=== PATIENT | male | born 1970 | race Caucasian/White ===

== ENCOUNTER 2024-03-01 16:18 | Outpatient (OUT) | payer OTHER, SELFPAY ==
--- NOTE | 2024-03-01 16:29 | US_ITS ---
The [address] [address] Patient Name: PAWEL IQBAL MRN: [id number] date: 1970 Sex: M Assigned Patient Location: US Current Patient Location: US Accession/Order Number: [id number] Exam Date: 03/01/2024 18:15 Report Date: 03/01/2024 19:08 At the request of: AMADOR THOMPSON Procedure: US venous doppler LE RT EXAM: US venous doppler LE RT HISTORY: Edema of right lower leg R60.0, Thrombophlebitis right leg for the past week. COMPARISON: None. TECHNIQUE: Multiple sonographic images of the deep veins of the right lower extremity were obtained, supplemented with Doppler. FINDINGS: The deep veins of the right lower extremity are fairly well visualized from the groin to the mid calf. No filling defect is identified to indicate a thrombus. There is normal compression augmentation of flow throughout. US/US venous doppler LE RT IMPRESSION: There is no direct or indirect evidence of deep vein thrombosis in the right lower extremity at this time. Electronically authenticated by: TORIE STROUD Date: 03/01/2024 19:08
== END 2024-03-01 16:19 | disposition home or self-care (01) ==
LOC: US 16:21
PROVIDERS: PCP Internal Medicine; Visit Provider Internal Medicine
DX: R60.0 Localized edema (principal); I80.291 Phlebitis and thrombophlebitis of other deep vessels of right lower extremity
CPT/HCPCS: 93971